=== PATIENT | male | born 1960 | race American Indian/Alaskan Native ===

== ENCOUNTER 2017-07-22 12:01 | Emergency (ER) | payer OTHER ==
--- NOTE | 2017-07-22 18:12 | Cat Scan Report ---
FINAL REPORT EXAM: CT CERVICAL SPINE WO CON HISTORY: cervical spinal tenderness TECHNIQUE: Noncontrast serial axial images through the cervical spine with coronal and sagittal reconstruction. PRIORS: None. FINDINGS: No gross abnormality is seen in the visualized portion of the brain. Mastoid air cells are well aerated. Prevertebral soft tissues appear within normal limits. Visualized portion of the lung apices are clear. The patient's head is rotated to the left side. No acute fracture or anterolisthesis is identified. Degenerative changes are noted at multiple levels. There is dextroscoliosis of upper cervical spine. IMPRESSION: 1. No acute fracture or anterolisthesis is identified. 2. Multilevel degenerative change is noted.
--- NOTE | 2017-07-22 18:20 | Emergency Department Report ---
Entered by NUZHAT TRAVIS, acting as scribe for NAFISA SONG NP. ED Neck Pain/Injury HPI - General Chief Complaint: Neck Pain/Injury Stated Complaint: SHOULDER/NECK/HEADACHE Time Seen by Provider: 07/22/17 16:05 Mode of arrival: Ambulatory Limitations: No Limitations - History of Present Illness Initial Comments: This is a 56 y/o male, nontoxic, well nourished in appearance, no acute signs of distress with a PMHx of HTN presents with an acute episode of chronic neck pain that began 2 weeks ago. Rates pain an 8/10 in severity, which he describes as aching in quality. Aggravated with movement and alleviated with nothing. Patient states the pain radiates to his bilateral shoulders. Denies recent neck injury/trauma, nausea, stiff neck, vomiting, fever, chills, chest pain, SOB, ABEL or dizziness, numbness, and tingling. Patient states he's been having neck pain for months, but he denies any neck injury/trauma. NKDA. HANDY Complaint: neck pain Onset/Timin -: week(s) Place: home Radiation: right shoulder, left shoulder Severity: severe Severity scale (0 -10): 8 Quality: aching Consistency: constant Improves With: none Worsens With: movement of extremity, movement of neck Context: unknown Associated Symptoms: none. denies: headache, fever, numbness, tingling, weakness, vertigo, difficulty walking, swollen glands, difficulty swallowing, nausea, vomiting Treatments Prior to Arrival: none - Related Data Previous Rx's Medication Instructions Recorded Last Taken Type Cyclobenzaprine [Flexeril] 10 mg PO TID PRN #15 tablet 07/22/17 Unknown Rx Ibuprofen [Motrin 600 MG tab] 600 mg PO Q8H PRN #30 tablet 07/22/17 Unknown Rx Allergies Allergy/AdvReac Type Severity Reaction Status Date / Time No Known Allergies Allergy Verified 07/22/17 12:32 ED Review of Systems Comment: All other systems reviewed and negative Constitutional: denies: chills, fever Eyes: denies: eye pain, eye discharge, vision change ENT: denies: ear pain, throat pain Respiratory: denies: cough, shortness of breath, wheezing Cardiovascular: denies: chest pain, palpitations Endocrine: no symptoms reported Gastrointestinal: denies: abdominal pain, nausea, vomiting, diarrhea Genitourinary: denies: urgency, dysuria Musculoskeletal: arthralgia (neck pain). denies: back pain, joint swelling, myalgia Skin: denies: rash, lesions Neurological: denies: headache, weakness, numbness, paresthesias, confusion, abnormal gait, vertigo Psychiatric: denies: anxiety, depression Hematological/Lymphatic: denies: easy bleeding, easy bruising ED Past Medical Hx - Past Medical History Previous Medical History?: Yes Hx Hypertension: Yes - Surgical History Past Surgical History?: Yes Additional Surgical History: tonsillectomy - Family History Family history: no significant - Social History Smoking Status: Former Smoker Substance Use Type: None - Medications Home Medications: Home Medications Medication Instructions Recorded Confirmed Last Taken Type Cyclobenzaprine [Flexeril] 10 mg PO TID PRN #15 tablet 07/22/17 Unknown Rx Ibuprofen [Motrin 600 MG tab] 600 mg PO Q8H PRN #30 tablet 07/22/17 Unknown Rx ED Physical Exam - General Limitations: No Limitations General appearance: alert, in no apparent distress - Head Head exam: Present: atraumatic, normocephalic - Eye Eye exam: Present: normal appearance, PERRL, EOMI. Absent: scleral icterus, conjunctival injection, nystagmus, periorbital swelling, periorbital tenderness Pupils: Present: normal accommodation - ENT ENT exam: Present: normal exam, normal orophraynx, mucous membranes moist, TM's normal bilaterally, normal external ear exam - Neck Neck exam: Present: tenderness (cervical spinal and paraspinal), full ROM. Absent: normal inspection, meningismus, lymphadenopathy, thyromegaly - Respiratory Respiratory exam: Present: normal lung sounds bilaterally. Absent: respiratory distress, wheezes, rales, rhonchi, stridor, chest wall tenderness, accessory muscle use, decreased breath sounds, prolonged expiratory - Cardiovascular Cardiovascular Exam: Present: regular rate, normal rhythm, normal heart sounds. Absent: bradycardia, tachycardia, irregular rhythm, systolic murmur, diastolic murmur, rubs, gallop - GI/Abdominal GI/Abdominal exam: Present: soft, normal bowel sounds. Absent: distended, tenderness, guarding, rebound, rigid - Extremities Exam Extremities exam: Present: normal inspection, full ROM, normal capillary refill. Absent: tenderness, pedal edema, joint swelling, calf tenderness - Back Exam Back exam: Present: full ROM, tenderness (cervical spinal and paraspinal), paraspinal tenderness (cervical), vertebral tenderness (cervical). Absent: normal inspection, CVA tenderness (R), CVA tenderness (L), muscle spasm, rash noted - Neurological Exam Neurological exam: Present: alert, oriented X3, CN II-XII intact, normal gait, reflexes normal. Absent: motor sensory deficit - Psychiatric Psychiatric exam: Present: normal affect, normal mood - Skin Skin exam: Present: warm, dry, intact. Absent: rash ED Course Vital Signs 07/22/17 12:32 Temperature 98.1 F Pulse Rate 73 Respiratory 18 Rate Blood Pressure 138/83 O2 Sat by Pulse 100 Oximetry - Reevaluation(s) Reevaluation #1: 07/22/17 16:39 Patient is speaking in full sentences with no signs of distress. ED Medical Decision Making - Medical Decision Making 56-year-old male that presents with cervical radiculopathy versus muscle spasm. Patient was evaluated by myself. Patient is stable. CT scan of cervical spine has been obtained with negative findings of any abnormalities and repeated radiologist. Patient is notified of CT findings results with no further questions noted by the patient. Patient be treated with Flexeril and ibuprofen. Patient was instructed to follow-up with a primary care doctor in 3- 5 days or if symptoms worsen or continue the emergency room as was possible. At time time of discharge, the patient does not seem toxic or ill in appearance. No acute signs of distress noted. Patient agrees to discharge treatment plan of care. No further questions noted by the patient. ED Disposition Clinical Impression: Cervical radiculopathy, Muscle spasm Disposition: DC-01 TO HOME OR SELFCARE Is pt being admited?: No Does the pt Need Aspirin: No Condition: Stable Instructions: Cervical Radiculopathy (ED), Muscle Spasm (ED), Cyclobenzaprine ( By mouth), Ibuprofen (By mouth) Additional Instructions: Follow-up with a primary care doctor in 3-5 days or if symptoms worsen or continue the emergency room as was possible. Take ibuprofen and Flexeril as prescribed. Do not operate heavy machinery while taking Flexeril due to sedation Prescriptions: Cyclobenzaprine [Flexeril] 10 mg PO TID PRN #15 tablet PRN Reason: Muscle Spasm Ibuprofen [Motrin 600 MG tab] 600 mg PO Q8H PRN #30 tablet PRN Reason: Pain Referrals: PRIMARY CARE, [Primary Care Provider] - 3-5 Days LORRAINE DEL TORO MD [Staff Physician] - 3-5 Days [facility] [Outside] - 3-5 Days [facility] [Outside] - 3-5 Days Forms: Work/School Release Form(ED) This documentation as recorded by the ANGY srivastava JASMINE,accurately reflects the service I personally performed and the decisions made by ,NAFISA SONG, [employer].
[2017-07-22 18:28] VITALS: BP 127/88
== END 2017-07-22 18:27 | disposition home or self-care (01) ==
LOC: ED 12:01
DX: M54.12 Radiculopathy, cervical region (principal); M62.838 Other muscle spasm; I10 Essential (primary) hypertension; Z87.891 Personal history of nicotine dependence
CPT/HCPCS: 72125